=== PATIENT | female | born 1970 | race Caucasian/White ===

== ENCOUNTER 2017-08-25 18:33 | Emergency (ER) | payer OTHER ==
[~2017-08-25] VITALS: Ht 167.6 cm; Wt 81.7 kg
[~2017-08-25 18:33] MED LIST: ATOR20 PO; CEPH500 PO; CLIN300 PO; CLOT10 SUSW; CYCL10 PO; HYDACE10B; HYDACE10B PO; HYDACE5 PO; HYDACE5325 PO; HYDR1TAB94 PO; IBUP800; IBUP800 PO; KETO10 PO; Keflex500 MG PO; LISI10 PO; LISI5 PO; LORA1 PO; LOVA20; METH10; METH40; METO10 PO; MUPI2TC TOP; NAPR500 PO; PENVK500 PO; PROACE100 PO; PROM25 PO; RXHYD5325 PO; RXHYDACE PO; RXTRAM50 PO; SERT50; TRAM50 PO; Ultram50 MG PO
[2017-08-25] MEDS ORDERED: PHENTERMINE (19:10)
[2017-08-25 20:12] LABS: BASOPHILS ABSOLUTE AUTO 0.02 K/mm3 (0.00-0.23); BASOPHILS PERCENT AUTO 0 % (0-2); EOSINOPHILS ABSOLUTE AUTO 0.26 K/mm3 (0.00-0.68); EOSINOPHILS PERCENT AUTO 4 % (0-6); Hematocrit 33.8 % (33.0-51.0); Hemoglobin 11.4 g/dL (11.5-16.0); IMMATURE GRAN ABSOLUTE AUTO 0.01 K/mm3 (0.00-0.10); IMMATURE GRAN PERCENT AUTO 0 % (0-1); LYMPHOCYTES ABSOLUTE AUTO 2.33 K/mm3 (0.84-5.20); LYMPHOCYTES PERCENT AUTO 36 % (21-46); MONOCYTES PERCENT AUTO 8 % (4-13); Mean Corpuscular HGB 30.8 pg (26.0-34.0); Mean Corpuscular HGB Conc 33.7 g/dL (31.5-36.5); Mean Corpuscular Volume 91 fL (80-100); NEUTROPHILS PERCENT AUTO 52 % (41-73); Platelet Count 358 K/mm3 (150-400); RDW Coefficient Variation 13.3 % (11.7-14.2); RDW Standard Deviation 44.7 fL (35.1-46.3); White Blood Cell Count 6.52 K/mm3 (4.00-11.30)
[2017-08-25 20:35] LABS: Albumin, Blood 3.6 g/dL (3.4-5.0); Albumin/Globulin Ratio 0.9 (0.8-1.8); Bilirubin, Total 0.3 mg/dL (0.1-1.0); Bun/Creatinine Ratio 12.9 (12.0-20.0); Calcium, Blood 9.2 mg/dL (8.5-10.1); Creatinine, Blood 1.63 mg/dL (0.40-1.00); Globulin, Blood 4.1 g/dL (2.2-4.0); Potassium, Blood 2.9 mmol/L (3.5-5.5); Total Protein, Blood 7.7 g/dL (6.4-8.2)
[2017-08-25 22:00] LABS: Source, Urine Clean Catch
[2017-08-25 22:07] LABS: Bilirubin, Urine Neg (Neg); Blood, Urine 2+ (Neg); Glucose Qualitative, Urine Neg (Neg); Ketones, Urine Neg (Neg); Leukocyte Esterase, Urine 1+ (Neg); Nitrite, Urine Neg (Neg); Protein, Urine 2+ (Neg); Urobilinogen, Urine NORM (Normal)
[2017-08-25 22:19] LABS: Appearance, Urine Cloudy (Clear); Color, Urine Yellow (P-Yellow)
[2017-08-25 22:21] LABS: Bacteria Mod /hpf; Squamous Epithelial Cells Many /hpf (Few); Transitional Epithelial Cells Rare /hpf (0-Rare); WBC Cast 0-2 /lpf (0)
[2017-08-25 23:41] LABS: Magnesium, Blood 1.9 mg/dL (1.6-2.4)
[2018-01-05] MEDS ORDERED: Adipex-P37.5 MG PO (09:35)
== END 2017-08-26 00:46 | disposition home or self-care (01) ==
LOC: ER 18:33
PROVIDERS: Emergency Medicine
DX: N39.0 Urinary tract infection, site not specified (principal); E87.6 Hypokalemia; Z87.442 Personal history of urinary calculi; Z90.710 Acquired absence of both cervix and uterus; Z85.89 Personal history of malignant neoplasm of other organs and systems; Z88.2 Allergy status to sulfonamides; Z79.899 Other long term (current) drug therapy
CPT/HCPCS: 36415; 74176; 80053; 81001; 83690; 83735; 85025; 87086; 93005; 93010; 96374; 99284; J1200

== ENCOUNTER 2018-01-01 09:23 | Emergency (ER) | payer OTHER ==
[~2018-01-01] VITALS: Ht 172.7 cm; Wt 86.2 kg
[~2018-01-01 09:23] MED LIST changes: +PHENTERMINE
[2018-01-01] MEDS ORDERED: METO50ER (10:01)
[2018-01-01] MEDS ORDERED: QUET300 (10:01)
[2018-01-01 10:29] LABS: BASOPHILS ABSOLUTE AUTO 0.02 K/mm3 (0.00-0.23); BASOPHILS PERCENT AUTO 0 % (0-2); EOSINOPHILS ABSOLUTE AUTO 0.19 K/mm3 (0.00-0.68); EOSINOPHILS PERCENT AUTO 3 % (0-6); Hematocrit 39.2 % (33.0-51.0); Hemoglobin 12.7 g/dL (11.5-16.0); IMMATURE GRAN ABSOLUTE AUTO 0.01 K/mm3 (0.00-0.10); IMMATURE GRAN PERCENT AUTO 0 % (0-1); LYMPHOCYTES ABSOLUTE AUTO 1.29 K/mm3 (0.84-5.20); LYMPHOCYTES PERCENT AUTO 22 % (21-46); MONOCYTES ABSOLUTE AUTO 0.36 K/mm3 (0.16-1.47); MONOCYTES PERCENT AUTO 6 % (4-13); Mean Corpuscular HGB Conc 32.4 g/dL (31.5-36.5); Mean Corpuscular Volume 93 fL (80-100); NEUTROPHILS ABSOLUTE AUTO 3.92 K/mm3 (1.96-9.15); NEUTROPHILS PERCENT AUTO 68 % (41-73); Platelet Count 370 K/mm3 (150-400); RDW Coefficient Variation 14.3 % (11.7-14.2); RDW Standard Deviation 48.3 fL (35.1-46.3); Red Blood Cell Count 4.23 M/mm3 (3.80-5.20); White Blood Cell Count 5.79 K/mm3 (4.00-11.30)
[2018-01-01 10:39] LABS: Alanine Aminotransfer (ALT/SGP 32 U/L (12-78); Albumin, Blood 3.5 g/dL (3.4-5.0); Albumin/Globulin Ratio 0.8 (0.8-1.8); Alk Phos 138 U/L (50-136); Anion Gap 8 mmol/L (6-16); Aspartate Aminotrans (AST/SGOT 34 U/L (12-37); Bilirubin, Total 0.3 mg/dL (0.1-1.0); Blood Urea Nitrogen 17 mg/dL (8-24); Bun/Creatinine Ratio 28.7 (12.0-20.0); CO2, Blood 27 mmol/L (21-32); Calcium, Blood 8.8 mg/dL (8.5-10.1); Chloride, Blood 108 mmol/L (98-108); Creatinine, Blood 0.59 mg/dL (0.40-1.00); Globulin, Blood 4.4 g/dL (2.2-4.0); Glomerular Filtration Rate >60 (60-); Glucose, Blood 63 mg/dL (70-99); Potassium, Blood 3.4 mmol/L (3.5-5.5); Sodium, Blood 143 mmol/L (136-145); Total Protein, Blood 7.9 g/dL (6.4-8.2)
[2018-01-01 10:41] LABS: U Amphetamine Screen Not Detected; U Barbituate Screen Not Detected; U Benzodiazapine Screen Not Detected; U Cocaine Screen Not Detected; U Methadone Screen Not Detected; U Methamphetamine Screen Not Detected
[2018-01-01 10:42] LABS: U Buprenorphine Screen Not Detected; U Cannabinoids Screen Not Detected; U Opiates Screen DETECTED; U Oxycodone Screen Not Detected; U Phencyclidine Screen Not Detected; U Propoxyphene Screen Not Detected
[2018-01-01] MEDS ORDERED: Tylenol325 MG PO (11:03)
[2018-01-01] MEDS ORDERED: Amoxicillin500 MG PO (11:03)
[2018-01-01 11:23] LABS: Source, Urine Voided
[2018-01-01 11:28] LABS: Bilirubin, Urine Neg (Neg); Blood, Urine Neg (Neg); Glucose Qualitative, Urine Neg (Neg); Ketones, Urine Neg (Neg); Leukocyte Esterase, Urine 3+ (Neg); Nitrite, Urine Neg (Neg); Protein, Urine Neg (Neg); Urobilinogen, Urine NORM (Normal)
[2018-01-01 11:39] LABS: Appearance, Urine Clear (Clear); Color, Urine Yellow (P-Yellow)
[2018-01-01 11:53] LABS: Bacteria Rare /hpf; Red Blood Cells, Urine Rare /hpf (0-2); Squamous Epithelial Cells Mod /hpf (Few)
[2018-01-05] MEDS ORDERED: Adipex-P37.5 MG PO (09:35)
== END 2018-01-01 11:35 | disposition home or self-care (01) ==
LOC: ER 09:23
PROVIDERS: Emergency Medicine
DX: R10.9 Unspecified abdominal pain (principal); Z88.2 Allergy status to sulfonamides; Z88.8 Allergy status to other drugs, medicaments and biological substances; Z79.899 Other long term (current) drug therapy
CPT/HCPCS: 36415; 71046; 80053; 81001; 81025; 83690; 85025; 87086; 96374; 99283; J1885

== ENCOUNTER 2019-01-14 00:36 | Day surgery (SDC) | payer OTHER ==
[~2019-01-14 00:36] MED LIST changes: +Adipex-P37.5 MG PO; +Amoxicillin500 MG PO; +METO50ER; +QUET300; +Tylenol325 MG PO
== END 2019-01-14 23:18 | disposition home or self-care (01) ==
LOC: WOUND
DX: N64.4 Mastodynia (principal); R23.9 Unspecified skin changes; I10 Essential (primary) hypertension; E78.5 Hyperlipidemia, unspecified; E66.9 Obesity, unspecified; Z88.2 Allergy status to sulfonamides; Z68.30 Body mass index [BMI] 30.0-30.9, adult
CPT/HCPCS: G0463

== ENCOUNTER → 2019-02-17 | Outpatient (CLI) | payer OTHER ==
[2019-02-19 14:06] LABS: HPV 16 Negative (Negative); HPV 18 Negative (Negative); HPV OTHER HR TYPES Negative (Negative)
== END | disposition home or self-care (01) ==
LOC: LAB 18:22 → LAB SHORT 18:22
PROVIDERS: Nurse Practitioner Women's Health
DX: Z12.4 Encounter for screening for malignant neoplasm of cervix (principal); Z91.89 Other specified personal risk factors, not elsewhere classified
CPT/HCPCS: 87624; G0123

== ENCOUNTER 2019-10-12 08:42 | Emergency (ER) | payer OTHER ==
[~2019-10-12] VITALS: Ht 162.6 cm; Wt 77.1 kg
[2019-10-12] MEDS ORDERED: LISI20 PO (09:27)
[2019-10-12] MEDS ORDERED: HYDR1TAB94 PO (10:40)
== END 2019-10-12 10:49 | disposition home or self-care (01) ==
LOC: ER 08:42
DX: S52.572A Other intraarticular fracture of lower end of left radius, initial encounter for closed fracture (principal); S52.612A Displaced fracture of left ulna styloid process, initial encounter for closed fracture; Z88.8 Allergy status to other drugs, medicaments and biological substances; Z88.2 Allergy status to sulfonamides; Z79.899 Other long term (current) drug therapy; Z85.818 Personal history of malignant neoplasm of other sites of lip, oral cavity, and pharynx; W19.XXXA Unspecified fall, initial encounter
CPT/HCPCS: A9270-GY

== ENCOUNTER 2020-01-20 07:55 | Inpatient (IN) | payer OTHER ==
[~2020-01-20] VITALS: Ht 165.1 cm; Wt 72.7 kg
[~2020-01-20 07:55] MED LIST changes: +LISI20 PO
[2020-01-20 08:17] LABS: BASOPHILS ABSOLUTE AUTO 0.04 K/mm3 (0.00-0.23); BASOPHILS PERCENT AUTO 1 % (0-2); EOSINOPHILS ABSOLUTE AUTO 0.32 K/mm3 (0.00-0.68); EOSINOPHILS PERCENT AUTO 5 % (0-6); Hematocrit 37.2 % (33.0-51.0); IMMATURE GRAN ABSOLUTE AUTO 0.02 K/mm3 (0.00-0.10); IMMATURE GRAN PERCENT AUTO 0 % (0-1); LYMPHOCYTES ABSOLUTE AUTO 1.97 K/mm3 (0.84-5.20); LYMPHOCYTES PERCENT AUTO 31 % (21-46); MONOCYTES ABSOLUTE AUTO 0.73 K/mm3 (0.16-1.47); MONOCYTES PERCENT AUTO 12 % (4-13); Mean Corpuscular HGB 30.8 pg (26.0-34.0); Mean Corpuscular HGB Conc 32.3 g/dL (31.5-36.5); Mean Corpuscular Volume 95 fL (80-100); Mean Platelet Volume 9.2 fL (9.1-12.4); NEUTROPHILS PERCENT AUTO 51 % (41-73); Platelet Count 319 K/mm3 (150-400); RDW Coefficient Variation 13.6 % (11.7-14.2); RDW Standard Deviation 47.5 fL (35.1-46.3); White Blood Cell Count 6.28 K/mm3 (4.00-11.30)
[2020-01-20 08:49] LABS: Alanine Aminotransfer (ALT/SGP 39 U/L (12-78); Albumin, Blood 3.4 g/dL (3.4-5.0); Albumin/Globulin Ratio 0.8 (0.8-1.8); Alk Phos 93 U/L (50-136); Anion Gap 8 mmol/L (6-16); Aspartate Aminotrans (AST/SGOT 36 U/L (12-37); Bilirubin, Total 0.7 mg/dL (0.1-1.0); Blood Urea Nitrogen 16 mg/dL (8-24); Bun/Creatinine Ratio 24.3 (12.0-20.0); CO2, Blood 22 mmol/L (21-32); Calcium, Blood 8.8 mg/dL (8.5-10.1); Chloride, Blood 112 mmol/L (98-108); Creatinine, Blood 0.66 mg/dL (0.40-1.00); Ethanol (Alcohol), Blood, Med <3 mg/dL; Globulin, Blood 4.2 g/dL (2.2-4.0); Glomerular Filtration Rate >60 (60-); Glucose, Blood 89 mg/dL (70-99); Potassium, Blood 3.5 mmol/L (3.5-5.5); Sodium, Blood 142 mmol/L (136-145); Total Protein, Blood 7.6 g/dL (6.4-8.2); Troponin I <0.015 ng/mL (0.000-0.040)
--- NOTE | 2020-01-20 11:00 | NUR ---
ASSUMED CARE: ARIVED TO THE UNIT ON TELEMETRY. PT WENT IN TO A 7 BEAT RUN OF V-TACH AFTER PLACING PT ON THE MONITOR. TRANSFERED TO THE ICU BED WITH EASE PT HAD MINIMAL MOVMEMNT. NASAL TRUMPET NOTED IN R NARES. UPON TURNING PT A SMALL PATCH WITH WRITING OF ESTRADLOL 0.05MG/DAY IS NOTED ON HER R BUTT CHEEK, REMOVED D/T INABILITY TO DETERMINE WHEN IT WAS PLACED AND DIFFICULTY BEING ABLE TO READ THE PATCH. SOTO PLACED UA OBTAINED AND SENT TO LAB. WILL CONTINUE TO MONITOR.
[2020-01-20 11:29] LABS: Source, Urine Catheter
--- NOTE | 2020-01-20 11:38 | NUR ---
V-TACH: CALLED DR KELLY AND NOTIFIED OF PT LEXIE TO THE FLOOR AND RUN OF V-TACH. ORDER FOR 40 MEQ OF KCL VIA IV.
[2020-01-20 11:49] LABS: Salicylate <1.7 mg/dL (2.8-20.0)
[2020-01-20 11:52] LABS: Acetaminophen, Random <2.0 ug/mL (10.0-30.0)
[2020-01-20 11:55] LABS: Bilirubin, Urine Neg (Neg); Blood, Urine Neg (Neg); Glucose Qualitative, Urine Neg (Neg); Ketones, Urine Neg (Neg); Leukocyte Esterase, Urine Neg (Neg); Nitrite, Urine Neg (Neg); Protein, Urine 1+ (Neg); Urobilinogen, Urine NORM (Normal)
[2020-01-20 12:29] LABS: Appearance, Urine Clear (Clear); Color, Urine Yellow (P-Yellow)
[2020-01-20 13:53] LABS: U Amphetamine Screen DETECTED
[2020-01-20 13:54] LABS: U Barbituate Screen Not Detected; U Benzodiazapine Screen Not Detected; U Buprenorphine Screen Not Detected; U Cannabinoids Screen Not Detected; U Cocaine Screen Not Detected; U Methadone Screen Not Detected; U Methamphetamine Screen DETECTED; U Opiates Screen Not Detected; U Oxycodone Screen Not Detected; U Phencyclidine Screen Not Detected; U Propoxyphene Screen Not Detected
--- NOTE | 2020-01-20 14:29 | NUR ---
DR KELLY: IN TO SEE PT AND ASSESS AT THIS TIME.
--- NOTE | 2020-01-20 14:47 | NUR ---
WAKING: PT WAKING UP UPON ENTERING THE ROOM. MUMMBLES AND IS DIFFICULT TO UNDERSTAND PT IS ORIENTED TO PLACE AND SITUATION.
--- NOTE | 2020-01-20 15:06 | NUR ---
FAMILY/FRIEND UPDATES: MULTIPLE FAMILY HAVE CALLED TO GET AN UPDATE ON THE PT, BUT D/T NOT BEING ON PT COVER SHEET NEXT OF KIN OR EMERGENCY CONTACT NO INFORMATION HAS BEEN GIVEN OTHER THAN PT IS ALIVE AND STABLE.
--- NOTE | 2020-01-20 19:00 | NUR ---
ASSUMED CARE ASSUMED CARE OF PATIENT. CONTINUES TO BE OBTUNDED. ROUSES TO NOXIOUS STIMULI AND MOVES SPONTANEOUSLY, BUT DOESN'T OPEN EYES OR FOLLOW COMMANDS. MOANS AND MUMBLES INCOHERENTLY. MONITOR SHOWS NSR, RATE 60s. HYPERTENSION NOTED. RA SATS STABLE. RESPIRATIONS EVEN AND UNLABORED AT THIS TIME. NASAL TRUMPET NOTED TO RIGHT NARES. NS INFUSING @ 125CC/HR. SOTO PATENT AND DRAINING CLEAR YELLOW URINE. SEE SHIFT ASSESSMENT FOR FULL ASSESSMENT.
--- NOTE | 2020-01-20 20:00 | NUR ---
HYPERTENSION SBP 180s-200s. CALL TO SMALL ARMS REPAIRER- NEW ORDER RECEIVED FOR HYDRALAZINE PRN.
--- NOTE | 2020-01-20 22:59 | NUR ---
UPDATE PT AWAKE AND ASKING FOR HER DENTURES. KNOWS THAT SHE IS IN THE HOSPITAL, BUT DOESN'T KNOW WHY. WHEN INFORMED THAT IT WAS THOUGHT SHE MIGHT HAVE OVERDOSED ON SEROQUEL, SHE STATES THAT SHE ONLY TOOK TWO TABLETS. QUICKLY FALLS BACK TO SLEEP.
--- NOTE | 2020-01-21 02:30 | NUR ---
PAIN PT CRYING- STATES "MY BODY HURTS ALL OVER." CALL TO DR. MCCLAIN- NEW ORDER RECEIVED FOR A ONE TIME DOSE OF FENTANYL IV.
[2020-01-21 03:43] LABS: Anion Gap 10 mmol/L (6-16); Blood Urea Nitrogen 7 mg/dL (8-24); Bun/Creatinine Ratio 15.3 (12.0-20.0); CO2, Blood 19 mmol/L (21-32); Calcium, Blood 7.9 mg/dL (8.5-10.1); Chloride, Blood 112 mmol/L (98-108); Creatinine, Blood 0.46 mg/dL (0.40-1.00); Glomerular Filtration Rate >60 (60-); Glucose, Blood 98 mg/dL (70-99); Magnesium, Blood 1.7 mg/dL (1.6-2.4); Potassium, Blood 2.7 mmol/L (3.5-5.5); Sodium, Blood 141 mmol/L (136-145)
--- NOTE | 2020-01-21 06:00 | NUR ---
HYPOKALEMIA DR. MCCLAIN NOTIFIED OF ABNORMAL POTASSIUM RESULT- NEW ORDER RECEIVED FOR IV POTASSIUM REPLACEMENT.
--- NOTE | 2020-01-21 06:36 | NUR ---
SHIFT SUMMARY NO ACUTE CHANGES DURING NOC. PT SLEEPS WHEN UNDISTURBED. STARTLES AND ROUSES EASILY. ORIENTED TO SELF AND TO THE FACT THAT SHE IS IN THE HOSPITAL. DOESN'T REMEMBER EVENTS. DENIES OVERDOSING, BUT DOESN'T HAVE AN EXPLANATION FOR WHAT HAPPENED PRIOR TO COMING IN. REPOSITIONS SELF IN BED. MEDICATED X 1 WITH FENTANYL 50MCG IV FOR C/O "ALL OVER" PAIN 06/03. MEDICATED WITH HYDRALAZINE 10MG IV X 2 DOSES FOR HYPERTENSION. REMAINS NPO UNTIL FULLY AWAKE. SOTO PATENT AND DRAINING CLEAR YELLOW URINE. NS INFUSING @ 125CC/HR PER ORDER. WILL REPORT TO ONCOMING RN WHEN AVAILABLE.
--- NOTE | 2020-01-21 07:05 | NUR ---
ASSUMED CARE: RECEIVED REPORT FROM NOC RN. PT APPEARS TO BE SLEEPING IN THE ROOM NOTED FROM THE DOOR WAY. PT HAS EVEN CHEST RISE AND FALL. NO ACUTE DISTRESS NOTED ON THE MONITOR OR ON VISIUAL APPEARANCE. WILL CONTINUE TO MONITOR AND ASSESS FURTHER. PIGGYBACK OF KCL CURRENTLY RUNNING WITH MAINTANENCE FLUID OF NS @ 125 ML/HR.
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
--- NOTE | 2020-01-21 10:00 | NUR ---
DR CONSULT: UPDATED DR KELLY ON PT REQUEST FOR PSYCH AND OR ORDERED FOR DR NIELSON TO SEE PT.
--- NOTE | 2020-01-21 10:56 | NUR ---
POISON CONTROL: CALLED TO GET UPDATE ON PT. NO NEW RECOMENDATIONS
--- NOTE | 2020-01-21 14:43 | NUR ---
ASSUMED CARE ARRIVED TO UNIT @ 1430, SLIDE FROM BED TO BED. RECEIVED REPORT FROM EMILIANA GIORDANO-ICU. SETTLED TO ROOM, BED IN LOWEST POSITION, CALL LIGHT NEAR.
--- NOTE | 2020-01-21 15:57 | NUR ---
L WRIST PAIN PT C/O 05/04 L WRIST PAIN R/T FRACTURE FROM "FALL". DR. KELLY NOTIFIED, ORDER RECEIVED.
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
--- NOTE | 2020-01-21 19:30 | NUR ---
ASSUMED CARE. NIKHIL IS SLEEPING, AWAKES BY NAME. FOLLOWS DIRECTIONS AND ANSWERS QUESTIONS BUT VERY TIRED AND WANTS TO SLEEP. TENDS TO FALL ASLEEP DURING ASSESSMENT. DENIES SOB, CP, NAUSEA, PAIN. LUNG SOUNDS ARE CLEAR. HR REGULAR SOUNDS. NO SKIN ISSUES. SLIGHTLY WEAK ON SCARF AND ANNEAL OPERATOR AND LEG MOVMENT BUT MAY DUE TO TIREDNESS. LEFT WRIST WRAPPED IN [place], ABLE TO MOVE WITHOUT PAIN. WILL CONTINUE TO MONITOR AND PROVIDE CARE. SANDWHICH GIVEN PER REQUEST.
--- NOTE | 2020-01-22 04:43 | NUR ---
SHIFT SUMMARY: 49 Y/O ADMITTED FOR AMS/SEREQUEL OD. NIKHIL HAS BEEN SLEEPING THE ENTIRE SHIFT. SHE DID WAKE UP ANY TIME NAME IS CALLED. SHE WOKE TO TALK TO SON, TO EAT. HAD TO WAKE HER THIS AM TO HAVE HER GO TO THE BATHROOM, WHICH WAS AN UNMEASURED VOID. SLIGHTLY UNSTEADY ON HER FEET. COOPERATIVE. VITALS HAVE BEEN STABLE, AFEBRILE. WILL CONTINUE TO MONITOR TILL SHIFT CHANGE.
[2020-01-22 05:22] LABS: Anion Gap 9 mmol/L (6-16); Blood Urea Nitrogen 17 mg/dL (8-24); Bun/Creatinine Ratio 32.8 (12.0-20.0); CO2, Blood 22 mmol/L (21-32); Calcium, Blood 8.2 mg/dL (8.5-10.1); Chloride, Blood 109 mmol/L (98-108); Creatinine, Blood 0.52 mg/dL (0.40-1.00); Glomerular Filtration Rate >60 (60-); Glucose, Blood 94 mg/dL (70-99); Potassium, Blood 3.3 mmol/L (3.5-5.5); Sodium, Blood 140 mmol/L (136-145)
[2020-01-22] MEDS ORDERED: Seroquel Xr50 MG PO (16:11)
== END 2020-01-22 16:26 | disposition home or self-care (01) | DRG 918 ==
LOC: ER 07:55 → MEDS 09:32 → ICUW 09:32 → ICUE 10:10 → MEDS 01-21 14:40
PROVIDERS: Emergency Medicine; ADMIT Internal Medicine
DX: T43.591A Poisoning by other antipsychotics and neuroleptics, accidental (unintentional), initial encounter (principal); F33.9 Major depressive disorder, recurrent, unspecified; E87.2 Acidosis; F19.10 Other psychoactive substance abuse, uncomplicated; E87.6 Hypokalemia; I10 Essential (primary) hypertension; Z88.6 Allergy status to analgesic agent; Z88.2 Allergy status to sulfonamides
CPT/HCPCS: 36415; 51702; 70450; 80048; 80053; 82140; 83735; 84484; 85025; 93005; 93010; 96361; 96374; 99285-25; G0480; J0360; J0461; J2060; J3010; J3480; J7030; J7050

== ENCOUNTER 2020-10-15 01:04 | Emergency (ER) | payer OTHER ==
[~2020-10-15] VITALS: Ht 167.6 cm; Wt 74.8 kg
[~2020-10-15 01:04] MED LIST changes: +Seroquel Xr50 MG PO
[2020-10-15] MEDS ORDERED: Cleocin HCl300 MG PO (01:39)
== END 2020-10-15 01:55 | disposition home or self-care (01) ==
LOC: ER 01:04
DX: L02.416 Cutaneous abscess of left lower limb (principal); Z23 Encounter for immunization; Z88.6 Allergy status to analgesic agent; Z88.2 Allergy status to sulfonamides; Z87.442 Personal history of urinary calculi
CPT/HCPCS: 10061; 90471; 90714; 99283-25; A9270

== ENCOUNTER 2020-10-16 13:16 | Emergency (ER) | payer OTHER ==
[~2020-10-16] VITALS: Ht 167.6 cm; Wt 72.6 kg
[~2020-10-16 13:16] MED LIST changes: +Cleocin HCl300 MG PO
== END 2020-10-16 14:30 | disposition left against medical advice (07) ==
LOC: ER 13:16
DX: Z48.01 Encounter for change or removal of surgical wound dressing (principal); Z53.21 Procedure and treatment not carried out due to patient leaving prior to being seen by health care provider
CPT/HCPCS: 99282

== ENCOUNTER 2021-04-06 21:15 | Emergency (ER) | payer OTHER ==
[~2021-04-06] VITALS: Ht 167.6 cm; Wt 95.2 kg
[2021-04-07 00:06] LABS: BASOPHILS ABSOLUTE AUTO 0.05 K/mm3 (0.00-0.23); BASOPHILS PERCENT AUTO 1 % (0-2); EOSINOPHILS ABSOLUTE AUTO 0.19 K/mm3 (0.00-0.68); EOSINOPHILS PERCENT AUTO 2 % (0-6); Hematocrit 32.5 % (33.0-51.0); IMMATURE GRAN ABSOLUTE AUTO 0.03 K/mm3 (0.00-0.10); IMMATURE GRAN PERCENT AUTO 0 % (0-1); LYMPHOCYTES ABSOLUTE AUTO 1.27 K/mm3 (0.84-5.20); LYMPHOCYTES PERCENT AUTO 16 % (21-46); MONOCYTES ABSOLUTE AUTO 0.68 K/mm3 (0.16-1.47); MONOCYTES PERCENT AUTO 8 % (4-13); Mean Corpuscular HGB 26.7 pg (26.0-34.0); Mean Corpuscular HGB Conc 30.8 g/dL (31.5-36.5); Mean Corpuscular Volume 87 fL (80-100); Mean Platelet Volume 8.8 fL (9.1-12.4); NEUTROPHILS ABSOLUTE AUTO 5.89 K/mm3 (1.96-9.15); NEUTROPHILS PERCENT AUTO 73 % (41-73); Platelet Count 373 K/mm3 (150-400); RDW Coefficient Variation 15.5 % (11.7-14.2); RDW Standard Deviation 49.5 fL (35.1-46.3); Red Blood Cell Count 3.75 M/mm3 (3.80-5.20); White Blood Cell Count 8.11 K/mm3 (4.00-11.30)
[2021-04-07 00:31] LABS: Alanine Aminotransfer (ALT/SGP 29 U/L (12-78); Albumin, Blood 2.9 g/dL (3.4-5.0); Albumin/Globulin Ratio 0.7 (0.8-1.8); Alk Phos 149 U/L (50-136); Anion Gap 8 mmol/L (6-16); Aspartate Aminotrans (AST/SGOT 34 U/L (12-37); Bilirubin, Total 0.5 mg/dL (0.1-1.0); Blood Urea Nitrogen 16 mg/dL (8-24); Bun/Creatinine Ratio 18.9 (12.0-20.0); CO2, Blood 25 mmol/L (21-32); Calcium, Blood 7.9 mg/dL (8.5-10.1); Chloride, Blood 112 mmol/L (98-108); Creatinine, Blood 0.85 mg/dL (0.40-1.00); Glomerular Filtration Rate >60 (60-); Glucose, Blood 91 mg/dL (70-99); Potassium, Blood 3.3 mmol/L (3.5-5.5); Sodium, Blood 145 mmol/L (136-145); Total Protein, Blood 6.9 g/dL (6.4-8.2); Troponin I 0.044 ng/mL (0.000-0.040)
[2021-04-07] MEDS ORDERED: K-Dur10 MEQ PO (01:23)
[2021-04-07] MEDS ORDERED: LASIX20 M2 PO (01:23)
== END 2021-04-07 01:25 | disposition left against medical advice (07) ==
LOC: ER 21:15
PROVIDERS: Physician Assistant
DX: Z88.6 Allergy status to analgesic agent (principal); J81.1 Chronic pulmonary edema; R60.0 Localized edema; E87.6 Hypokalemia; R77.8 Other specified abnormalities of plasma proteins; F15.90 Other stimulant use, unspecified, uncomplicated; Z88.2 Allergy status to sulfonamides
CPT/HCPCS: 36415; 71045; 80053; 83880; 84484; 85025; 93005; 93010; 99284-25; A9270